=== PATIENT | female | born 2000 | race Hispanic/Latino ===

== ENCOUNTER 2025-07-28 10:18 | Emergency (ER) | payer OTHER, SELFPAY ==
[2025-07-28] MEDS ORDERED: Dexamethasone 4 MG TAB ONE (10:44)
[2025-07-28] MEDS ORDERED: Ibuprofen 200 MG TAB ONE (10:45)
== END 2025-07-28 12:01 | disposition home or self-care (01) ==
LOC: CSHERS 10:18
DX: B34.9 Viral infection, unspecified (principal); J02.9 Acute pharyngitis, unspecified; F17.290 Nicotine dependence, other tobacco product, uncomplicated; Z55.6 Problems related to health literacy
CPT/HCPCS: 87081; 87428; 87430; 99283; J8540

== ENCOUNTER 2025-10-07 16:05 | Emergency (ER) | payer BC ==
[2025-10-07] MEDS ORDERED: Ketorolac Tromethamine 30 MG (1 mL) VIAL ONE (17:09)
== END 2025-10-07 17:32 | disposition home or self-care (01) ==
LOC: CSHERS 16:05
DX: J10.1 Influenza due to other identified influenza virus with other respiratory manifestations (principal); F17.290 Nicotine dependence, other tobacco product, uncomplicated
CPT/HCPCS: 87428; 96372; 99284; J1885; Q0162